=== PATIENT | male | born 1970 | race African-American/Black ===

== ENCOUNTER 2025-01-25 23:56 | Emergency (ER) | payer MEDICAID ==
[~2025-01-25] VITALS: Ht 167.6 cm; Wt 77.0 kg
[2025-01-26 00:04] VITALS: O2SAT 98
[2025-01-26] MEDS ORDERED: KETOROLAC 15MG/ML VIAL IM ONE (00:30)
[2025-01-26] MEDS: IBUPROFEN 400MG TABLET PO ONE (02:00)
[2025-01-26] MEDS ORDERED: LIDO-53 TP (02:37)
[2025-01-26] MEDS ORDERED: NAPR-1176 MT (02:37)
[2025-01-26 03:45] VITALS: BP 144/91; PULSE 76; RESP 18; TEMP 36.8; O2SAT 99
== END 2025-01-26 03:52 | disposition home or self-care (01) ==
LOC: ER 23:56
DX: M25.571 Pain in right ankle and joints of right foot (principal); J44.89 Other specified chronic obstructive pulmonary disease; Z79.1 Long term (current) use of non-steroidal anti-inflammatories (NSAID); W23.0XXA Caught, crushed, jammed, or pinched between moving objects, initial encounter; Y93.89 Activity, other specified; Y92.89 Other specified places as the place of occurrence of the external cause; Y99.8 Other external cause status
CPT/HCPCS: 99284; 73610; 73630; J1885; A6449